=== PATIENT | female | born 1950 | race Caucasian/White ===

== ENCOUNTER 2022-03-19 10:12 | Emergency (ER) | payer MEDICARE, SELFPAY ==
[2022-03-19 10:29] VITALS: BP 127/75; PULSE 79; RESP 24; TEMP 37.6; O2SAT 98; BMI 26.6
--- NOTE | 2022-03-19 11:18 | CRLHL7_ITS ---
For Patients: As a result of the Century Cures Act, medical imaging exams and procedure reports are released immediately into your electronic medical record. You may view this report before your referring provider. If you have questions, please contact your health care provider. INDICATION: Left-sided facial and neck swelling, without pain TECHNIQUE: CT of the neck with 79 ml iodinated contrast agent. Coronal and sagittal reconstructions are included. COMPARISON: None available FINDINGS: Mild soft tissue strain is noted throughout the left buccal soft tissues and submandibular platysma. No focal fluid collection. No focal mass or suspicious enhancement. No lymphadenopathy by CT size criteria. The bilateral parotid, bilateral submandibular, and thyroid glands are normal in appearance. The oral cavity, pharyngeal mucosal spaces, and laryngeal structures are unremarkable. Visualized airway appears grossly patent. Slight asymmetry of the left more than right piriform sinuses, presumed physiologic/anatomic variant. No suspicious dental findings. Major vascular structures of the neck demonstrate normal contrast opacification. The dominant left internal jugular vein is grossly patent. Mild cervical spondylosis, without evidence of critical foraminal or spinal canal stenosis. No acute abnormality identified within the included intracranial structures. Clear visualized paranasal sinuses, left mastoid air cells, and right mastoid bowl, status post right-sided canal wall up mastoidectomy. Included views of the lungs demonstrate no focal consolidation or mass. IMPRESSION: 1. Mild soft tissue stranding throughout the left buccal region and submandibular platysma, nonspecific, but suggestive of mild edema or cellulitis. 2. No focal fluid collection, mass, suspicious osseous/dental findings or suspicious enhancement. 3. No cervical lymphadenopathy. Please note that all CT scans at this facility use dose modulation, iterative reconstruction, and/or weight-based dosing when appropriate to reduce radiation dose to as low as reasonably achievable. Dictated by Gina Quiroz MD @ 03/19/2022 1:02:32 PM (Electronically Signed)
--- NOTE | 2022-03-19 11:21 | ED.GENADULT ---
HPI - General Adult General Time Seen by Provider: : Date Seen: 03/19/22 Chief complaint: Sore Throat Stated complaint: Swollen cheek, pain swallowing Time Seen by Provider: 03/19/22 10:18 Source: patient Mode of arrival: ambulatory Limitations: no limitations History of Present Illness HPI narrative: Patient is a 71 year old female through an sound equipment mechanic reports that she has had some left facial and upper neck angle of the jaw swelling since this morning. She states she really could not swallow her pills which she takes metformin for diabetes. 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 She has had this happen before and did not seek treatment. She denies any sick specific allergies, denies any difficulty breathing, denies any chest pain extremity swelling or other concerns recently, no fevers chills rigors. With the does not describe this is painful just reports some swelling in her left mandible area and submandibular area on the left. This was all relayed through an sound equipment mechanic Related Data Home Medications Medication Instructions Recorded Confirmed aspirin 81 mg tablet,delayed 81 mg PO DAILY 03/19/22 03/19/22 release (Adult Aspirin Regimen) calcium carbonate 500 mg-vitamin 1 tab PO DAILY 03/19/22 03/19/22 D3 10 mcg (400 unit) tablet (Calcium 500 With D) estradiol 0.01% (0.1 mg/gram) 1 g vaginal HS 03/19/22 03/19/22 vaginal cream glipizide 10 mg tablet, extended 10 mg PO DAILY 03/19/22 03/19/22 release 24 hr metformin 500 mg tablet,extended 500 mg PO BID 03/19/22 03/19/22 release 24 hr Previous Rx's Medication Instructions Recorded cephalexin 500 mg capsule 500 mg PO Q6H #20 caps 03/19/22 methylprednisolone 4 mg tablets in See Rx Instructions PO .COMPLEX 03/19/22 a dose pack (Medrol (Evin)) #21 ea Allergies Allergy/AdvReac Type Severity Reaction Status Date / Time No Known Drug Allergies Allergy Verified 03/19/22 12:42 Review of Systems Status of ROS: Reports: 6 or more systems reviewed and unremarkable except as noted in History and below [facility] Medical History Diabetes Social History Do you use any of these nicotine containing products: None Second hand tobacco smoke exposure: No How often do you have a drink containing alcohol: never How often do you have six or more drinks on one occasion: Never AUDIT-C Alcohol total score: 0 Non-prescribed substance use: denies use service: No Exam Narrative: Exam Narrative: Objective: Patient's vital signs are unremarkable than mildly elevated temperature 99.6?, O2 sat is 90% on room air HEENT shows some mild swelling of the submandibular glands on the left submandibular area. The patient's throat appears clear non read, no evidence of obstruction or swelling. Pulses regular neurologic is nonfocal Skin is well-perfused, warm and dry Const: Vital Signs, click to edit/add: Vital Signs - 24 hr 03/19/22 10:29 03/19/22 13:30 Temperature 99.6 F Pulse Rate [Right Pulse Oximeter] 79 72 Respiratory Rate 24 20 Blood Pressure [Ri ght Upper Arm] 127/75 126/64 Pulse Oximetry 98 Oxygen Delivery Me thod Room Air Course Vital Signs Vital signs: Initial Vital Signs Temperature 99.6 F 03/19/22 10:29 Temperature Source Temporal Artery Scan 03/19/22 10:29 Pulse Rate 79 03/19/22 10:29 Respiratory Rate 24 03/19/22 10:29 Blood Pressure 127/75 03/19/22 10:29 Blood Pressure Mean 92 03/19/22 10:29 Blood Pressure Position Sitting 03/19/22 10:29 Pulse Oximetry 98 03/19/22 10:29 Oxygen Delivery Method 03/19/22 10:29 Vital Signs Temperature 99.6 F 03/19/22 10:29 Pulse Rate 79 03/19/22 10:29 Respiratory Rate 24 03/19/22 10:29 Blood Pressure 127/75 03/19/22 10:29 Pulse Oximetry 98 03/19/22 10:29 Oxygen Delivery Method 03/19/22 10:29 Temperature 99.6 F 03/19/22 10:29 Pulse Rate 72 03/19/22 13:30 Respiratory Rate 20 03/19/22 13:30 Blood Pressure 126/64 03/19/22 13:30 Pulse Oximetry 98 03/19/22 10:29 Oxygen Delivery Method 11/09/22 10:29 Medical Decision Making MDM Narrative Medical decision making narrative: Patient has left-sided facial swelling and submandibular swelling, my suspicion is she has a submandibular inflammation. I think because of her initial complaint of difficulty swallowing all check a CT scan of her neck, heme 4 basic 7 CRP. Patient will get IV Ancef and IV Solu-Medrol at this time. Disposition care based on her CT scan and labs. Addendum: Patient's labs look reassuring, her CT scan of the neck shows some mild edema versus cellulitic change inner cheek which could be pupil cellulitis and radiating down to her neck. There was no problem with her throat or breathing or airway. Will give her Medrol Dosepak to start and Keflex 500 q.i.d. times 5-7 days, follow up with primary care in the next 2 days Lab Data Labs: Lab Results 03/19/22 03/19/22 Range/Units 11:35 11:35 WBC 5.65 (4.50-11.00) K/uL RBC 4.37 (4.00-5.20) m/uL Hgb 13.2 (12.0-16.0) gm/dL Hct 39.1 (33.0-51.0) % MCV 90 (80-100) fL MCH 30 (26-34) pg MCHC 34 (32-36) gm/dL RDW Coeff of Serena 12.3 (11.5-15.5) % Plt Count 181 (140-440) K/uL Neut % (Auto) 56.0 (42.0-72.0) % Lymph % (Auto) 35.8 (20-44) % [place] % (Auto) 5.5 (0.0-11.0) % Eos % (Auto) 2.3 (0.0-7.0) % Baso % (Auto) 0.4 (0.0-3.0) % Neut # (Auto) 3.17 (1.7-7.0) K/uL Lymph # (Auto) 2.02 (0.90-2.90) K/uL [place] # (Auto) 0.30 (0.00-0.90) K/UL Eos # (Auto) 0.13 (0.00-0.50) K/uL Baso # (Auto) 0.02 (0.00-0.30) K/uL Abs Immat Gran (auto) 0.00 (0.00-0.30) K/uL Imm/Tot Granulo (auto) 0.0 % Sodium 136 (135-149) mmol/L Potassium 4.2 (3.6-5.1) mmol/L Chloride 104 (96-114) mmol/L Carbon Dioxide 21 (20-32) mmol/L BUN 13 (7-30) mg/dL Creatinine 0.5 (0.5-1.5) mg/dL Estimated Creat Clear 45.09 Estimated GFR 99 ml/min Glucose 175 H (60-115) mg/dL Calcium 8.9 (8.4-10.6) mg/dL C-Reactive Protein < 0.5 L (0.5-1.0) mg/dL Discharge Plan Discharge Clinical Impression: Submandibular gland swelling Patient Disposition: Home w/ Parent or Adult Condition: Stable Additional Instructions: light diet, fluids, keflex x 7 days, medrol dose evin. Recheck with primary care in the next 24-48 hours . return to ED sooner problems or concerns Activity Level: Light activity Discharge Diet: Full Liquid Diet Detail: advance diet as improved Prescriptions: New methylprednisolone [Medrol (Evin)] 4 mg tablets,dose pack See Rx Instructions .ROUTE .COMPLEX Qty: 21 0RF Rx Instructions: orally per package directions cephalexin 500 mg capsule 500 mg PO Q6H Qty: 20 0RF No Action glipizide 10 mg tablet extended release 24hr 10 mg PO DAILY metformin 500 mg tablet extended release 24 hr 500 mg PO BID aspirin [Adult Aspirin Regimen] 81 mg tablet,delayed release (DR/EC) 81 mg PO DAILY estradiol 0.01 % (0.1 mg/gram) cream 1 g VAGINAL HS Label Comments: INSERT 1 GRAM INTO VAGINA AT BEDTIME NIGHTLY FOR 2 WEEKS THEN 2-3 NIGHTS PER WEEK calcium carbonate-vitamin D3 [Calcium 500 With D] 500 mg-10 mcg (400 unit) tablet 1 tab PO DAILY Label Comments: TAKE 1 TABLET BY MOUTH ONCE DAILY Stand Alone Forms: MyHealth Info Instructions
[2022-03-19] MEDS: METHYLPREDNISOLONE SOD SUCC 62.5 MG/ML (125) 125 MG IVP (11:45)
[2022-03-19] MEDS: CEFAZOLIN 1 GM in 0.9 % SODIUM CHLORIDE Mini-bag 100 ML IVPB (11:45)
[2022-03-19 11:46] LABS: Basophils Absolute Auto 0.02 K/uL (0.00-0.30); Basophils Percent Auto 0.4 % (0.0-3.0); Eosinophils Absolute Auto 0.13 K/uL (0.00-0.50); Eosinophils Percent Auto 2.3 % (0.0-7.0); Hematocrit 39.1 % (33.0-51.0); Hemoglobin* 13.2 gm/dL (12.0-16.0); Lymphocytes Absolute Auto 2.02 K/uL (0.90-2.90); Lymphocytes Percent Auto 35.8 % (20-44); Mean Corpuscular HGB Conc 34 gm/dL (32-36); Mean Corpuscular Hemoglobin 30 pg (26-34); Mean Corpuscular Volume 90 fL (80-100); Monocytes Percent Auto 5.5 % (0.0-11.0); Neutrophils Absolute Auto 3.17 K/uL (1.7-7.0); Platelet Count* 181 K/uL (140-440); RDW Coefficient of Variation % 12.3 % (11.5-15.5); Red Blood Count 4.37 m/uL (4.00-5.20); White Blood Count* 5.65 K/uL (4.50-11.00)
[2022-03-19 11:47] LABS: Slide Review Reflex No
[2022-03-19 11:58] LABS: Chloride* 104 mmol/L (96-114)
[2022-03-19 11:59] LABS: Potassium* 4.2 mmol/L (3.6-5.1); Sodium* 136 mmol/L (135-149)
[2022-03-19 12:01] LABS: Creatinine* 0.5 mg/dL (0.5-1.5); Est. Creatinine Clearance* 45.09; Estimated Glomerular Filt Rate 99 ml/min
[2022-03-19 12:02] LABS: Blood Urea Nitrogen* 13 mg/dL (7-30); Calcium* 8.9 mg/dL (8.4-10.6); Carbon Dioxide* 21 mmol/L (20-32); Glucose* 175 mg/dL (60-115)
[2022-03-19 12:05] LABS: C Reactive Protein* < 0.5 mg/dL (0.5-1.0)
[2022-03-19 13:30] VITALS: BP 126/64; PULSE 72; RESP 20
== END 2022-03-19 13:55 | disposition home or self-care (01) ==
PROVIDERS: Emergency Provider Family Medicine; PCP Family Medicine
DX: K11.8 Other diseases of salivary glands (principal)
CPT/HCPCS: 36415; 70491; 80048; 85025; 86140; 96365; 96375; 99284; J0690; J2930; Q9967